=== PATIENT | female | born 1995 | race Caucasian/White ===

== ENCOUNTER → 2020-05-31 12:55 | Outpatient (CLI) | payer BC, SELFPAY ==
[2020-06-01 15:54] LABS: Covid-19 Nasal PCR Sendout Lex NOT DETECTED
== END ==
PROVIDERS: Visit Provider Internal Medicine Adolescent Medicine
DX: Z03.818 Encounter for observation for suspected exposure to other biological agents ruled out (principal)
CPT/HCPCS: U0004